=== PATIENT | female | born 1955 | race American Indian/Alaskan Native ===

== ENCOUNTER 2016-08-31 07:41 | Outpatient (CLI) | payer BC ==
--- NOTE | 2016-08-31 15:05 | Cat Scan Report ---
CT neck without contrast: Palpable mass. A marker was placed over the area of concern in the low right neck. Transverse images obtained from the skull base into the upper chest with coronal and sagittal 2-D reformatted images. The oral pharynx and larynx structures appear unremarkable. There is no evidence of soft tissue mass no adenopathy. The salivary glands do not appear enlarged. The marker placed on the patient overlies a normal-appearing right sternocleidomastoid muscle and thyroid gland. The gland contains a 3.7 mm hypodensity consistent a cyst. Impression: No pathology identified.
== END 2016-08-31 07:42 | disposition home or self-care (01) ==
LOC: CT 07:41 → EDSEX 08:00
PROVIDERS: ATTEND Otolaryngology
DX: R22.1 Localized swelling, mass and lump, neck (principal)
CPT/HCPCS: 70492; Q9967

== ENCOUNTER 2016-09-19 11:55 | Day surgery (SDC) | payer BC ==
--- NOTE | 2016-09-19 15:29 | History and Physical Report ---
History of Present Illness Date of examination: 09/19/16 Chief complaint: rt. thyroid nodule Medications and Allergies Allergies Allergy/AdvReac Type Severity Reaction Status Date / Time No Known Allergies Allergy Verified 09/19/16 12:59 Home Medications Medication Instructions Recorded Confirmed Last Taken Type Progesterone,Micronized 100 mg PO DAILY 09/19/16 09/19/16 09/18/16 History [Progesterone] Ranitidine HCl [Zantac 150 MG TAB] 150 mg PO DAILY 09/19/16 09/19/16 09/18/16 History Zolpidem [Ambien] 10 mg PO QHS 09/19/16 09/19/16 09/18/16 History Exam Vital Signs Temp Pulse Resp BP Pulse Ox 97.9 F 81 18 135/82 100 09/19/16 13:53 09/19/16 13:53 09/19/16 13:53 09/19/16 13:53 09/19/16 13:53
--- NOTE | 2016-09-19 15:33 | Procedure Note ---
Date of procedure: 09/19/16 Pre-op diagnosis: rt. thyroid nodule Post-op diagnosis: same Procedure: thyroid asp. Findings: adequate specimen Anesthesia: local Surgeon: FRANCISCA KRISHNAMURTHY Estimated blood loss: none Pathology: list (rt.thyroid asp.) Specimen disposition: to lab Condition: stable Disposition: observation
--- NOTE | 2016-09-19 15:39 | Ultrasound Report ---
Ultrasound guided right thyroid aspirate: The right thyroid lobe measures 16 x 22 x 49 mm. The inferior portion of the lobe is diffusely inhomogeneous but there is no discrete mass. There is a small cyst in the superior lobe measuring approximately 5 mm. The area of inhomogeneity measures approximately 13 x 27 mm. The left lobe measures 15 x 19 x 42 mm. In the superior lobe there is a circumscribed area hypoechogenicity measuring 5 mm having no suspicious characteristics. The skin was cleansed over the right neck. One percent lidocaine used for local anesthesia. Under ultrasound guidance a 25-gauge needle was successfully placed into the area of inhomogeneity with aspiration. The attending pathologist indicated that an adequate sample had been obtained. The patient was sent to observation prior to discharge. No complication encountered.
[2016-09-19 16:01] VITALS: BP 141/83
== END 2016-09-19 15:50 | disposition home or self-care (01) ==
LOC: US 11:55 → CATHLABREC 11:55
PROVIDERS: ATTEND Otolaryngology
DX: E04.1 Nontoxic single thyroid nodule (principal)
CPT/HCPCS: 60100; 76942; 88112; 88172; 88173; 88305